=== PATIENT | female | born 2000 | race Caucasian/White ===

== ENCOUNTER 2022-06-20 13:43 | Emergency (ER) | payer OTHER, SELFPAY ==
[2022-06-20 14:38] VITALS: BP 121/72; PULSE 73; RESP 15; TEMP 36.7; O2SAT 100; BMI 25.4
--- NOTE | 2022-06-20 16:05 | W.ED.ABDPA2 ---
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 She denies any dysuria urgency or frequency no vaginal discharge or bleeding. She had no complications or to this point. 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 Baez, as previously scheduled. Medical Records I reviewed the patient's medical records. Lab Data I reviewed the patient's lab results. : 06/20/22 16:04 06/20/22 16:04 Labs/Radiology: Laboratory Results WBC 15.5 10^3/uL (4.0-10.0) H 06/20/22 16:04 RBC 3.59 10^6/uL (4.1-5.3) L 06/20/22 16:04 Hgb 11.2 g/dL (11.5-15.3) L 06/20/22 16:04 Hct 32.9 % (37.0-47.0) L 06/20/22 16:04 MCV 91.6 fl (81-99) 06/20/22 16:04 MCH 31.2 pg (28.0-34.0) 06/20/22 16:04 MCHC 34.0 g/dL (30.0-36.0) 06/20/22 16:04 RDW 12.7 % (12.1-15.1) 06/20/22 16:04 Plt Count 203 10^3/cmm (130-400) 06/20/22 16:04 MPV 11.2 fL (7.4-10.4) H 06/20/22 16:04 Neut % (Auto) 77.0 % 06/20/22 16:04 Lymph % (Auto) 14.5 % 06/20/22 16:04 [place] % (Auto) 5.1 % 06/20/22 16:04 Eos % (Auto) 1.3 % 06/20/22 16:04 Baso % (Auto) 0.5 % 06/20/22 16:04 Neut # (Auto) 11.96 10^3/uL (1.8-7.7) H 06/20/22 16:04 Lymph # (Auto) 2.3 10^3/uL (0.8-4.8) 06/20/22 16:04 [place] # (Auto) 0.8 10^3/uL (0.2-0.9) 06/20/22 16:04 Eos # (Auto) 0.2 10^3/uL (0.0-0.8) 06/20/22 16:04 Baso # (Auto) 0.1 10^3/uL (0.0-0.1) 06/20/22 16:04 Nucleated RBC % (auto) 0 % 06/20/22 16:04 Nucleated RBCs # 0.0 /100WBC 06/20/22 16:04 Sodium 134 mmol/L (136-145) L 06/20/22 16:04 Potassium 3.2 mmol/L (3.5-5.1) L 06/20/22 16:04 Chloride 100 mmol/L (98-107) 06/20/22 16:04 Carbon Dioxide 23 mmol/L (22-29) 06/20/22 16:04 Anion Gap 14.2 (5-19) 06/20/22 16:04 BUN 6 mg/dL (6-20) 06/20/22 16:04 Creatinine 0.4 mg/dL (0.5-0.9) L 06/20/22 16:04 GFR Calculation 199.6 mL/min (90-130) H 06/20/22 16:04 Glucose 81 mg/dL (65-115) 06/20/22 16:04 Calculated Osmolality 275 mOsm/kg (285-295) L 06/20/22 16:04 Calcium 9.3 mg/dL (8.5-10.5) 06/20/22 16:04 Total Bilirubin 0.2 mg/dL (0.15-1.2) 06/20/22 16:04 AST 25 U/L (0-32) 06/20/22 16:04 ALT 34 U/L (0-33) H 06/20/22 16:04 Alkaline Phosphatase 82 U/L (35-105) 06/20/22 16:04 Total Protein 6.6 g/dL (6.6-8.7) 06/20/22 16:04 Albumin 4.1 g/dL (3.5-5.2) 06/20/22 16:04 Globulin 2.5 g/dL (1.3-4.6) 06/20/22 16:04 Ser , Semi-Qnt 9728.00 mIU/mL 06/20/22 16:04 Urine Color Yellow (Yellow) 06/20/22 16:04 Urine Appearance Clear (CLEAR) 06/20/22 16:04 Urine pH 7 (5-7) 06/20/22 16:04 Ur Specific [place] 1.010 (1.005-1.030) 06/20/22 16:04 Urine Protein Neg (Negative) 06/20/22 16:04 Urine Glucose (UA) Norm (Normal) 06/20/22 16:04 Urine Ketones Negative (Negative) 06/20/22 16:04 Urine Blood Neg (Negative) 06/20/22 16:04 Urine Nitrate Negative (Negative) 06/20/22 16:04 Urine Bilirubin Neg (Negative) 06/20/22 16:04 Urine Urobilinogen Norm mg/dL (Negative) 06/20/22 16:04 Ur Leukocyte Esterase Negative (Negative) 06/20/22 16:04 Discharge Plan Discharge Patient Disposition: Home Clinical Impression: Pain of round ligament during Condition: Stable Prescriptions: No Action Multivitamins 28 mg iron- 800 mcg Tablet 1 tab PO DAILY Discharge Orders: Discharge ED (Routine); Ordered 06/20/22 Ordered By: Gil Martinez Discharge Diet: Usual diet Discharge Activity: Increase activity as tolerated Patient Instructions: Abdominal Pain (ED), Opioid Safety, Pain Management Activity Restrictions/Additional Instructions: Follow-up with Dr. Baez as previously scheduled. Coding Level of Care Code ED Air Hammer Operator for Oseas Sethi
[2022-06-20] MEDS: sodium chloride 0.9% 1,000 ML 999 ML IV (16:09)
[2022-06-20 16:23] LABS: Basophils # 0.1 10^3/uL (0.0-0.1); Basophils % 0.5 %; Eosinophils # 0.2 10^3/uL (0.0-0.8); Eosinophils % 1.3 %; Hematocrit 32.9 % (37.0-47.0); Hemoglobin 11.2 g/dL (11.5-15.3); Lymphocytes # 2.3 10^3/uL (0.8-4.8); Lymphocytes % 14.5 %; Mean Corpuscular Hemoglobin 31.2 pg (28.0-34.0); Mean Corpuscular Volume 91.6 fl (81-99); Mean Platelet Volume 11.2 fL (7.4-10.4); Monocytes # 0.8 10^3/uL (0.2-0.9); Monocytes % 5.1 %; Neutrophils # 11.96 10^3/uL (1.8-7.7); Nucleated Red Blood Cells % 0 %; Platelet Count 203 10^3/cmm (130-400); Red Blood Count 3.59 10^6/uL (4.1-5.3); Red Cell Distribution Width 12.7 % (12.1-15.1); White Blood Count 15.5 10^3/uL (4.0-10.0)
[2022-06-20 16:36] LABS: Add Urine Microscopic? NO; Charge for UA Resulting for Rev
[2022-06-20 16:53] LABS: Alanine Aminotransferase 34 U/L (0-33); Albumin Level 4.1 g/dL (3.5-5.2); Alkaline Phosphatase 82 U/L (35-105); Anion Gap 14.2 (5-19); Aspartate Amino Transferase 25 U/L (0-32); Blood Urea Nitrogen 6 mg/dL (6-20); Calcium 9.3 mg/dL (8.5-10.5); Carbon Dioxide 23 mmol/L (22-29); Chloride 100 mmol/L (98-107); Globulin 2.5 g/dL (1.3-4.6); Glomerular Filtration Rate 199.6 mL/min (90-130); Glucose 81 mg/dL (65-115); Osmolality Calculated 275 mOsm/kg (285-295); Potassium 3.2 mmol/L (3.5-5.1); Sodium 134 mmol/L (136-145); Total Bilirubin 0.2 mg/dL (0.15-1.2); Total Protein 6.6 g/dL (6.6-8.7)
[2022-06-20 16:59] LABS: Bilirubin Urine Neg (Negative); Blood Urine Neg (Negative); Glucose Urine UA Norm (Normal); Ketones Urine Negative (Negative); Leukocyte Esterase Urine Negative (Negative); Nitrate Urine Negative (Negative); Protein Urine Neg (Negative); Urine Appearance Clear (CLEAR); Urine Color Yellow (Yellow); Urobilinogen Urine Norm (Negative); pH Urine 7 (5-7)
[2022-06-20 17:42] VITALS: BP 122/71
[2022-06-20 18:53] VITALS: BP 122/71; PULSE 73; RESP 15; TEMP 36.7; O2SAT 100
== END 2022-06-20 18:57 | disposition home or self-care (01) ==
PROVIDERS: Emergency Provider Family Medicine
DX: O26.892 Other specified pregnancy related conditions, second trimester (principal); R10.2 Pelvic and perineal pain; Z3A.19 19 weeks gestation of pregnancy
CPT/HCPCS: 80053; 81003; 84702; 85025; 99284; J7030

== ENCOUNTER 2022-10-21 13:21 | Outpatient (CLI) | payer OTHER, MEDICAID, SELFPAY ==
[2022-10-21] VITALS (11 sets, daily range): BP systolic 105–133; BP diastolic 66–84; PULSE 67–89; RESP 17–18; BMI 30.7
== END 2022-10-21 16:25 | disposition home or self-care (01) ==
LOC: OPOB 13:28 → OBGYN 13:29
PROVIDERS: Visit Provider Family Medicine
DX: O47.9 False labor, unspecified (principal); Z3A.00 Weeks of gestation of pregnancy not specified
CPT/HCPCS: 59025; 99211

== ENCOUNTER → 2022-10-24 06:00 | Day surgery (SDC) | payer OTHER, SELFPAY | LOC: OPS 11-16 06:08 | PROVIDERS: Visit Provider Family Medicine | DX: Z01.818 Encounter for other preprocedural examination (principal) ==

== ENCOUNTER 2022-10-25 01:48 | Inpatient (IN) | payer OTHER, SELFPAY ==
[2022-10-25] VITALS (97 sets, daily range): BP systolic 97–153; BP diastolic 51–112; PULSE 68–164; RESP 16–18; TEMP 36.4–36.8; O2SAT 97–100; BMI 28.6
[2022-10-25 04:55] LABS: Basophils # 0.1 10^3/uL (0.0-0.1); Basophils % 0.4 %; Eosinophils # 0.1 10^3/uL (0.0-0.8); Eosinophils % 0.5 %; Hematocrit 33.1 % (37.0-47.0); Hemoglobin 10.6 g/dL (11.5-15.3); Lymphocytes # 1.8 10^3/uL (0.8-4.8); Lymphocytes % 9.5 %; Mean Corpuscular Hemoglobin 28.2 pg (28.0-34.0); Mean Platelet Volume 11.5 fL (7.4-10.4); Monocytes # 1.3 10^3/uL (0.2-0.9); Monocytes % 6.7 %; Neutrophils # 15.61 10^3/uL (1.8-7.7); Nucleated Red Blood Cells % 0 %; Platelet Count 238 10^3/cmm (130-400); Red Blood Count 3.76 10^6/uL (4.1-5.3); Red Cell Distribution Width 13.2 % (12.1-15.1); White Blood Count 19.3 10^3/uL (4.0-10.0)
[2022-10-25] MEDS: lactated ringers 1,000 ML 999 ML IV ×2 (05:37→06:44)
[2022-10-25] MEDS: ondansetron 2 mg/ML SDV 2 mL 4 MG IVP (05:59)
--- NOTE | 2022-10-25 06:35 | PC.NURSE ---
0633: This nurse spoke to Rachel in surgery, and she stated she would speak to one of the Anesthesia providers and they would come for an epidural.
--- NOTE | 2022-10-25 06:46 | ANES.PREANE2 ---
Pre-Anesthetic Assessment Height/Weight: Height 1.63 m Weight 75.75 kg Temp Pulse Resp BP O2 Del Method 97.5 F L 96 18 141/74 10/25/22 01:57 10/25/22 06:39 10/25/22 04:08 10/25/22 06:39 10/25/22 04:11 Preop Diagnosis: Active Labor Labor Epidural Familial anesthetic complications: none Was Beta Judy taken within 24 hours: N/A Was Clonidine taken within 24 hours: N/A Last intake: clears current 1700 10/24/22 meal. Social No alcohol and No tobacco Exam alert, oriented x 3 and clear to auscultation bilaterally Airway Submandibular: within normal limits Cervical ROM: within normal limits Mallampati: Class II Dentition: full History/ROS No significant history except as noted Pulmonary Asthma (exercise induced.) CV/HEM None reported None reported Hepatic None reported GI Gastroesophageal Reflux Disease Metabolic None reported Musc/skel None reported Neuropsych None reported Anesthetic Plan ASA status: 2 Anesthesia: Regional (specify below) Other: Labor Epidural Other Pertinent Information discussed elevated WBC and risk of infection. No fevers or tachycardia noted. Patient states she had the Norovirus 2-3 weeks prior full resolution of symptoms. Medications/Allergies Home Medications Medication Instructions Recorded Confirmed Last Taken Type vit no.95-ferrous 1 tab PO DAILY 06/20/22 10/25/22 10/24/22 History fumarate 28 mg-folic acid 800 mcg tablet ( Multivitamins) Allergies Allergy/AdvReac Type Severity Reaction Status Date / Time Cephalosporins Allergy ALGY-Joint Verified 10/25/22 02:05 Pain Sulfa (Sulfonamide Allergy ALGY-Rash Verified 10/25/22 02:05 Antibiotics) Current Medications Generic Name Dose Route Start Last Admin Trade Name Freq PRN Reason Stop Dose Admin Lactated Ringer's 1,000 mls @ 999 mls/hr 10/25/22 04:07 10/25/22 05:37 Lactated Ringers IV 999 mls/hr .Q1H1M PRN Administration See label comments Ondansetron HCl 4 mg 10/25/22 04:07 10/25/22 05:59 Ondansetron 2 Mg/Ml Sdv 2 Ml IVP 4 mg Q4H PRN Administration NAUSEA AND VOMITING PFSH Anesthesia Female Reproductive History : 1 Data Anesthesia 10/25/22 04:40 Short CBC 10/25/22 Range/Units 04:40 WBC 19.3 H (4.0-10.0) 10^3/uL Hgb 10.6 L (11.5-15.3) g/dL Hct 33.1 L (37.0-47.0) % MCV 88.0 (81-99) fl Plt Count 238 (130-400) 10^3/cmm Neut % (Auto) 81.0 % Neut # (Auto) 15.61 H (1.8-7.7) 10^3/uL Cardiac Studies: No Data to Display Anesthesia Procedures Epidural Time Out Performed: Yes Consent: from patient, risks and benefits reviewed and patient agrees to proceed Lumbar Level: L3-L4 Epidural position: sitting Epidural procedure: sterile prep of area, 1% lidocaine to numb the area, negative for paresthesia passed, test dose given, 1.5% xylocaine 1:200k epi, placed PCEA, no systemic response, sterile dressing applied, L.U.D. no apparent complications and 0.2% Ropiavacaine @ mls/hr (13) Additional Comments: 1st attempt successful, however heme aspirated from catheter, the catheter pulled back 1 cm and flushed heme present. 2nd attempt successful NURY of 6cm catheter threaded to 12cm. No heme or CSF aspirated, test dose x2 (3 minutes apart). 100 mcg Fentanyl given via epidural. Patient laid back and repositioned 3rd test dose given and also negative. Pump started at 13ml/hr
[2022-10-25] MEDS: dextrose 5%-lactated ringers 1,000 ML 125 ML IV (07:45)
--- NOTE | 2022-10-25 12:05 | PM.OPHPUD ---
Labor & Delivery H&P Update Date of Procedure: October 25, 2022 Date H&P Performed: 10/24/22 Changes to previous documentation: The patient cervix demonstrated change with consistent contractions Admission Diagnosis: 21-year-old 1 at 38 weeks estimated gestational age Preop diagnosis: Active Labor Other information: The patient is a 21-year-old 1 at 38 weeks estimated gestational age. Her has been relatively unremarkable with exception of a chlamydia diagnosis earlier in her which was treated and tested negative. Her blood type is O+. Her antibody screen was negative. She is rubella immune. Her GBS status is negative. Glucose screen was passed. The remainder of her infectious disease profile was within normal limits. Her drug screen was negative. Related Problem List Diagnoses (1) 38 weeks gestation of : A&P Assessment and plan (1) 38 weeks gestation of : Continue to monitor the patient for cervical progress. She has received an epidural and an amniotomy. Status: Acute
--- NOTE | 2022-10-25 12:08 | P.PCNOB_ITS ---
Delivery Note: Date of delivery: October 25, 2022 Pre-delivery diagnoses: 21-year-old 1 at 38 weeks estimated gestational age Post-delivery diagnoses: Status post spontaneous vaginal delivery Procedure: Spontaneous vaginal delivery Delivering Physician: Guillermo Baez Estimated blood loss (mL): 150 Pre-Delivery Course: The patient presented to the hospital in active labor. An epidural was placed. An amniotomy was performed. The patient progressed to complete without difficulty. Delivery: DELIVERY: The patient progressed to complete without difficulty. She delivered a male with a weight of 5 pounds 13 ounces with Apgars of 8, 9. The baby was delivered from the DYLAN position. The baby's mouth and nose were suctioned shortly after the baby was completely delivered and placed on the mother's abdomen. The cord was then clamped and cut after the cord stopped pulsating per the mother's request. There was a nuchal cord x1, and the baby was delivered through the cord. There was no meconium. The placenta and 3 vessel cord were delivered intact shortly thereafter. The perineum and vaginal vault were carefully examined. A first-degree posterior midline vaginal lac eration was noted, but the bleeding stopped and no repair was required. Both the mother and the baby were in stable condition. Post-Delivery Status: Good A&P Assessment and plan (1) Spontaneous vaginal delivery: I anticipate routine care (2) 38 weeks gestation of : Coding Level of Care Code Acute Code for Chg Fwd Diagnoses Spontaneous vaginal delivery O80 38 weeks gestation of Z3A.38
[2022-10-25] MEDS: lanolin oint 7 gm 1 APPLIC TOPICAL (14:26)
[2022-10-25] MEDS: ibuprofen 800 mg tablet PO ×2 (14:26→20:19)
[2022-10-25] MEDS: benzocaine-menthol 78 gm Canister 1 SPRAY TOPICAL (14:27)
--- NOTE | 2022-10-25 15:28 | ANE.PACU2 ---
Inpatient post-anesthesia follow up: Airway intact: Yes Vital signs: Temperature 98.2 F Pulse Rate 115 Respiratory Rate 16 Blood Pressure 116/71 Pulse Oximetry 100 Oxygen Delivery Me thod Room Air Oxygen Flow Rate Fraction of Inspir ed Oxygen Hydration adequate: Yes Nausea and vomiting: No Pain level: 2 Mental status: Baseline
[2022-10-25] MEDS: docusate sodium 100 mg Capsule PO (20:19)
[2022-10-26 00:39] LABS: Hematocrit 25.6 % (37.0-47.0); Hemoglobin 8.3 g/dL (11.5-15.3); Mean Corpuscular HGB Conc 32.4 g/dL (30.0-36.0); Mean Corpuscular Hemoglobin 29.2 pg (28.0-34.0); Mean Corpuscular Volume 90.1 fl (81-99); Mean Platelet Volume 11.1 fL (7.4-10.4); Platelet Count 183 10^3/cmm (130-400); Red Blood Count 2.84 10^6/uL (4.1-5.3); Red Cell Distribution Width 13.5 % (12.1-15.1); White Blood Count 22.1 10^3/uL (4.0-10.0)
--- NOTE | 2022-10-26 04:40 | PM.OBGYDC ---
Discharge Providers INSTRUMENT PANEL ASSEMBLER Date of Admission: 10/25/22 04:12 Date of Discharge: 10/26/22 Attending Provider at Admission: Guillermo Baez MD Attending Provider at Discharge: Guillermo Baez MD Diagnoses at Discharge Discharge Diagnosis (1) Spontaneous vaginal delivery: Status: Acute (2) 38 weeks gestation of : Status: Acute Reason for Visit Reason for Visit: Contractions Information Peripartum Data: Infant Delivery Method: Vaginal Physical Exam Narrative: The patient is alert. She appears comfortable. Her heart has a regular rate and rhythm with no murmurs appreciated. Lungs are clear to auscultation bilaterally. Her fundus is firm and below the umbilicus. Urinary Catheter Management: Mendez Latex: Cath Placed During This Visit: yes Urinary Catheter Date of Insertion: 10/25/22 Urinary Catheter Time of Insertion: 08:37 Discharge Data Studies Completed and Pending Laboratory Results WBC 22.1 10^3/uL (4.0-10.0) H 10/26/22 00:33 RBC 2.84 10^6/uL (4.1-5.3) L 10/26/22 00:33 Hgb 8.3 g/dL (11.5-15.3) L 10/26/22 00:33 Hct 25.6 % (37.0-47.0) L 10/26/22 00:33 MCV 90.1 fl (81-99) 10/26/22 00:33 MCH 29.2 pg (28.0-34.0) 10/26/22 00:33 MCHC 32.4 g/dL (30.0-36.0) 10/26/22 00:33 RDW 13.5 % (12.1-15.1) 10/26/22 00:33 Plt Count 183 10^3/cmm (130-400) 10/26/22 00:33 MPV 11.1 fL (7.4-10.4) H 10/26/22 00:33 Neut % (Auto) 81.0 % 10/25/22 04:40 Lymph % (Auto) 9.5 % 10/25/22 04:40 [place] % (Auto) 6.7 % 10/25/22 04:40 Eos % (Auto) 0.5 % 10/25/22 04:40 Baso % (Auto) 0.4 % 10/25/22 04:40 Neut # (Auto) 15.61 10^3/uL (1.8-7.7) H 10/25/22 04:40 Lymph # (Auto) 1.8 10^3/uL (0.8-4.8) 10/25/22 04:40 [place] # (Auto) 1.3 10^3/uL (0.2-0.9) H 10/25/22 04:40 Eos # (Auto) 0.1 10^3/uL (0.0-0.8) 10/25/22 04:40 Baso # (Auto) 0.1 10^3/uL (0.0-0.1) 10/25/22 04:40 Nucleated RBC % (auto) 0 % 10/25/22 04:40 Nucleated RBCs # 0.0 /100WBC 10/25/22 04:40 Vitals Last Vital Signs Temp 97.9 F 10/25/22 22:00 Pulse 77 10/25/22 22:00 Resp 17 10/25/22 22:00 BP 112/70 10/25/22 22:00 Pulse Ox 98 10/25/22 22:00 O2 Del Method 10/25/22 22:00 Discharge Plan Discharge Patient Disposition: Home Condition: Stable Prescriptions: New ibuprofen 800 mg Tablet 800 mg PO TID Qty: 45 0RF Continued PNV cmb#95-ferrous fumarate-FA [ Multivitamins] 28 mg iron- 800 mcg Tablet 1 tab PO DAILY Discharge Orders: Discharge Order (Routine); Ordered 10/26/22 Ordered By: Guillermo Baez Referrals: Guillermo Baez MD [Physician] - 6 Weeks Discharge Diet: Usual diet Discharge Activity: Limit activity as instructed Patient Instructions: Opioid Safety Discharge Attestations INSTRUMENT PANEL ASSEMBLER Time Spent in Discharge Care*: less than 30 min Coding Level of Care Code Acute Code for Chg Fwd Diagnoses Spontaneous vaginal delivery O80 38 weeks gestation of Z3A.38
[2022-10-26 05:42] VITALS: BP 99/63; PULSE 89; RESP 16; TEMP 36.7; O2SAT 98
[2022-10-26] MEDS: ibuprofen 800 mg tablet PO (08:24)
[2022-10-26] MEDS: prenatal vitamin Capsule 1 CAP PO (08:25)
[2022-10-26] MEDS: docusate sodium 100 mg Capsule PO (08:25)
[2022-10-26 10:14] VITALS: BP 100/60; PULSE 79; RESP 16; TEMP 36.7; O2SAT 97
[2022-10-26 14:10] VITALS: BP 110/75; PULSE 87; TEMP 36.7; O2SAT 98
== END 2022-10-26 14:45 | disposition home or self-care (01) | DRG 807 ==
PROVIDERS: Admitting Provider Family Medicine; Visit Provider Family Medicine
DX: O69.81X0 Labor and delivery complicated by cord around neck, without compression, not applicable or unspecified (principal); Z37.0 Single live birth; Z3A.38 38 weeks gestation of pregnancy; Z86.19 Personal history of other infectious and parasitic diseases
CPT/HCPCS: 12345; 36415; 51702; 59025; 59409; 85025; 85027; 96374; 99211; G0378; G0379; J2405; J2795; J3010; J7120; J7121